=== PATIENT | male | born 1995 | race Caucasian/White ===

== ENCOUNTER 2019-12-16 13:13 | Emergency (ER) | payer OTHER, SELFPAY ==
[2019-12-16 13:27] VITALS: BP 139/88; PULSE 62; RESP 20; TEMP 36.8; O2SAT 98
--- NOTE | 2019-12-16 13:34 | ED.GENADULT ---
HPI - General Adult General Chief complaint: Upper Respiratory Infection Stated complaint: sore throat/cough Time Seen by Provider: 12/16/19 13:34 Source: patient and RN notes reviewed Mode of arrival: ambulatory Limitations: no limitations History of Present Illness HPI narrative: This is a 24 years old male presented to the office for evaluation of sore throat for 3-day.Associated with cough. Denies fever, vomiting, or diarrhea. Denies sick contact. He took DayQuil for his symptoms.He did not receive influenza vaccine for the season. Related Data Allergies Allergy/AdvReac Type Severity Reaction Status Date / Time No Known Allergies Allergy Unknown Verified 05/21/19 12:23 Review of Systems Review of Systems: Narrative: CONSTITUTIONAL: Denies fever ENT: Denies rhinorrhea, otalgia. CARDIOVASCULAR: Denies chest pain RESPIRATORY: Denies dyspnea, wheezing GASTROINTESTINAL: Denies abdominal pain, nausea, vomiting, diarrhea. GENITOURINARY: Denies urinary symptoms SKIN: Denies rash MUSCULOSKELETAL: Denies acute back pain, joint pain, or myalgia. NEUROLOGIC: Denies numbness, or focal weakness. [facility] Family History Family History (Updated 06/03/19 @ 11:24 by DOCTOR UNKNOWN) Father Hypertension Social History Social History Smoking status: Never smoker Alcohol intake: current Gender identity (if verbalized by the patient): Male Comments At time of signature, I agree with nursing past medical, surgical, social and family history. There is no relevant family history pertinent to the presenting complaint. Exam Narrative: Exam Narrative: GENERAL: This is a well-nourished, well-developed patient, in no apparent distress. EYES: Sclera clear/white. Vision is grossly intact. EARS: External ears normal, auditory canals clear and without drainage, TMs normal without perforation. Hearing grossly intact. NOSE: External nose normal with no obvious nasal discharge, nares without redness, no rhinorrhea. THROAT: Mucous membranes moist, posterior pharynx erythema with tonsils 2+ without exudative NECK: Neck supple, non-tender without lymphadenopathy, masses or thyromegaly. CARDIOVASCULAR: Regular rate and rhythm without murmurs, gallops, or rubs. RESPIRATORY: Clear to auscultation. Breath sounds equal bilaterally. No wheezes, rales, or rhonchi. GASTROINTESTINAL: Abdomen soft, non-tender, nondistended. Bowel sounds are active. No hepato-splenomegaly, or palpable masses. No guarding. SKIN: warm, intact with no suspicious lesions or rash, good texture and turgor. NEURO: awake, alert, and oriented to person, place and time. There were no obvious focal neurologic abnormalities. Steady gait Kaleb Coma Scale Eye Opening: Spontaneous 4 Laurens Coma Scale Motor: Obeys Commands 6 Laurens Coma Scale Verbal: Oriented 5 Course Vital Signs Vital signs: Vital Signs Temperature 98.2 F 12/16/19 13:27 Pulse Rate 62 12/16/19 13:27 Respiratory Rate 12/16/19 13:27 Blood Pressure 139/88 12/16/19 13:27 Pulse Oximetry 98 12/16/19 13:27 Temperature 98.2 F 12/16/19 13:27 Pulse Rate 62 12/16/19 13:27 Respiratory Rate 12/16/19 13:27 Blood Pressure 139/88 12/16/19 13:27 Pulse Oximetry 98 12/16/19 13:27 Medical Decision Making MDM Narrative Medical decision making narrative: Discharge instructions reviewed with patient, as well as provided in writing per nursing staff. The instructions also include specific and strict return/GO TO THE ER as well as f/u information. All questions have been answered, and the patient deny any further questions with discharge and discharge plan. Differential Diagnosis Differential Diagnosis: pneumonia, Allergic Rhinitis, Upper respiratory cough syndrome, Pharyngitis, Sinusitis, Bronchitis, otitis media, viral URI, Asthma/reactive airway disease, influenza Medical Records Medical records reviewed: Yes I reviewed the patient's medical records. Vital Signs Vital S
== END 2019-12-16 13:45 | disposition home or self-care (01) ==
PROVIDERS: Emergency Provider Nurse Practitioner; PCP Pediatrics
DX: J02.9 Acute pharyngitis, unspecified (principal); R03.0 Elevated blood-pressure reading, without diagnosis of hypertension
CPT/HCPCS: 87081; 87880; 99213; G0463

== ENCOUNTER 2021-06-15 10:14 | Emergency (ER) | payer OTHER, SELFPAY ==
--- NOTE | ~2021-06-15 | XR_ITS ---
EXAMINATION: XR chest 2V DATE: 06/15/2021 10:39 INDICATION: Cough TECHNIQUE: PA and lateral views of the chest are obtained. COMPARISON: 05/21/2018 FINDINGS: The lungs are free of acute opacities. There is no pleural effusion or pneumothorax. The ca rdiomediastinal silhouette is normal. The visualized bones and soft tissues are unremarkable. IMPRESSION: 1. No acute cardiopulmonary abnormality. Reviewed, dictated and finalized at location A.
[2021-06-15 10:26] VITALS: BP 117/78; PULSE 75; RESP 20; TEMP 36.8; O2SAT 98
--- NOTE | 2021-06-15 10:35 | ED.GENADULT ---
HPI - General Adult General Chief complaint: Upper Respiratory Infection Stated complaint: cough Source: patient Mode of arrival: ambulatory Limitations: no limitations History of Present Illness HPI narrative: 26 y/o male. PMHx Negative. Presents to [facility] today with acute complaints of sore throat and cough for the past 5 days. He reports non-productive cough. Non-smoker. No fever, chills. No chest pain, palpitations, dyspnea, edema. Client states to have throat irritation , worse with cough. No dysphagia, involuntary drooling, or stridor. He denies ill contacts. Has not been Covid 19 vaccinated. Denies additional acute illness upon exam. Related Data Allergies Allergy/AdvReac Type Severity Reaction Status Date / Time No Known Allergies Allergy Unknown Verified 06/15/21 10:24 Review of Systems Review of Systems: CONSTITUTIONAL: Denies fever, chills, sweats. EYES: Denies visual changes, redness, discharge. ENT: Positive rhinorrhea, congestion, sore throat. No otalgia. CARDIOVASCULAR: Denies chest pain, palpitations, edema. RESPIRATORY: Positive Cough. Denies dyspnea, wheezing. GASTROINTESTINAL: Denies abdominal pain, nausea, vomiting, diarrhea. GENITOURINARY: Denies dysuria, hematuria, abnormal discharge SKIN: Denies rash or itching. MUSCULOSKELETAL: Denies acute back pain, joint pain, or myalgia. NEUROLOGIC: Denies numbness, or focal weakness. PSYCHIATRIC: Denies anxiety or depression. All systems reviewed & are unremarkable except as noted in HPI and below PMFSH Family History Family History Father Hypertension Social History Social History Smoking status: Never smoker Alcohol intake: current Gender identity (if verbalized by the patient): Male Exam Narrative: GENERAL: This is a well-nourished, well-developed adult, in no apparent distress. HEAD: normocephalic, atraumatic. EYES: PERRL. Sclera clear/white. EARS: External ears normal, auditory canals clear and without drainage, TMs normal. NOSE: External nose normal. Positive Rhinorrhea, no obstruction, nares patent. THROAT: Mucous membranes moist. Posterior pharynx is erythematous. No exudates. NECK: Neck supple, non-tender without lymphadenopathy, masses or thyromegaly. CARDIOVASCULAR: Regular rate and rhythm without murmurs, gallops, or rubs. RESPIRATORY: Upper airway Rhonchi, cleared with cough. No wheezes, rales, or stridor. GASTROINTESTINAL: Abdomen soft, non-tender, nondistended. Bowel sounds are active. No guarding. SKIN: warm, intact with no suspicious lesions or rash, good texture and turgor. NEURO: No focal neurologic deficits. EXTREMITIES: Negative. Course Course Emergency Course: -26 y/o male. -PMHx negative. - Vital Signs Vital signs: Vital Signs Temperature 36.8 C 06/15/21 10:26 Pulse Rate 75 06/15/21 10:26 Respiratory Rate 20 06/15/21 10:26 Blood Pressure 117/78 06/15/21 10:26 Pulse Oximetry 98 06/15/21 10:26 Temperature 36.8 C 06/15/21 10:26 Pulse Rate 75 06/15/21 10:26 Respiratory Rate 20 06/15/21 10:26 Blood Pressure 117/78 06/15/21 10:26 Pulse Oximetry 98 06/15/21 10:26 Medical Decision Making MDM Narrative Medical decision making narrative: -Afebrile, non-tachycardic, and no hypoxemia. Non-toxic. -Plain view chest imaging reveals no acute cardiopulmonary processes. -Rapid Strep is negative. -Client has declined additional SARS Covid 19 testing in clinic today. -Start Amoxicillin and Medrol URI/Early pharyngitis unspecified. -Pro-Air HFA PRN w/dyspnea, cough, wheezing. -Rest, fluids, resumption of OTC remedies prn for symptomatic relief. -PCP F/U 1 WK. -ER with emergent health status changes. Pt agrees. Differential Diagnosis Differential Diagnosis: Differential Diagnosis: Consideration of the following conditions may be
== END 2021-06-15 11:05 | disposition home or self-care (01) ==
PROVIDERS: Emergency Provider Nurse Practitioner Adult Health; PCP Nurse Practitioner
DX: J06.9 Acute upper respiratory infection, unspecified (principal)
CPT/HCPCS: 71046; 87081; 87880; 99213; G0463

== ENCOUNTER 2022-10-22 11:01 | Emergency (ER) | payer OTHER, SELFPAY ==
--- NOTE | ~2022-10-22 | XR_ITS ---
EXAMINATION: XR chest 2V DATE: 10/22/2022 11:41 INDICATION: Cough. Right rib pain. TECHNIQUE: Frontal and lateral views of the chest were obtained on 3 radiographs. COMPARISON: Chest 2 views 06/15/2021, CT abdomen and pelvis 05/21/2019 FINDINGS: The chest demonstrates clear lungs without pneumonia, pleural effusion, or pneumothorax. Th e heart size is normal. IMPRESSION: 1. No acute cardiopulmonary disease. Reviewed, dictated and finalized at location A. ANICAL SYSTEMS DESIGNER
[2022-10-22 11:11] VITALS: BP 112/70; PULSE 76; RESP 20; TEMP 36.4; O2SAT 98
--- NOTE | 2022-10-22 20:27 | ED.GENADULT ---
HPI - General Adult General Chief complaint: Back Pain/Injury Stated complaint: Pain when breathing in History of Present Illness HPI narrative: 27 y/o male. PMHx None reported. Presents to [facility] today with acute complaints of RT lower rib/chest wall pain, intermittently radiating to mid-back. He denies falls or direct trauma. 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 No rashes, lesions. No cough, congestion, fever. Denies hemoptysis. No chest pain, palpitations, dyspnea. No gi upset, N/V/D. No loss of upper extremity sensation or control. He reports a 'sharp' pain type sensation, worse with bending or deep breath. No additional acute c/o upon PE. Related Data Allergies Allergy/AdvReac Type Severity Reaction Status Date / Time No Known Allergies Allergy Unknown Verified 10/22/22 11:21 Review of Systems Review of Systems: All systems reviewed & are unremarkable except as noted in HPI and below: MUSC: RT lower rib/chest wall pain. PMFSH Family History Family History Father Hypertension Social History Social History Smoking status: Never smoker Alcohol intake: current Gender identity (if verbalized by the patient): Male Exam Narrative: GENERAL: Well-appearing, well-nourished, and in no acute distress. HEAD: Normocephalic, atraumatic. EYES: PERRLA, conjunctivae clear. ENT: Mucous membranes moist. NECK: Supple. No lymphadenopathy. No meningeal signs. CHEST: LS are Clear to auscultation. Mild reproducible RT lower intercostal chest wall tenderness, respectively rib spaces 7-10. No crepitus, flailing, deformity. HEART: Regular rate and rhythm. SKIN: Warm, dry, intact. No chest wall lesions or rashes. NEURO:? Alert and oriented x3. MUSC: Reproducible RT thoracic spasm, no midline spinal tenderness or step-off. Full and unrestricted ROM BUE. Course Course Level of Care: Express Care Visit Vital Signs Vital signs: Vital Signs Temperature 36.4 C 10/22/22 11:11 Pulse Rate 76 10/22/22 11:11 Respiratory Rate 20 10/22/22 11:11 Blood Pressure 112/70 10/22/22 11:11 Pulse Oximetry 98 10/22/22 11:11 Oxygen Delivery Room Air 10/22/22 11:11 Temperature 36.4 C 10/22/22 11:11 Pulse Rate 76 10/22/22 11:11 Respiratory Rate 20 10/22/22 11:11 Blood Pressure 112/70 10/22/22 11:11 Pulse Oximetry 98 10/22/22 11:11 Oxygen Delivery Room Air 10/22/22 11:11 Medical Decision Making MDM Narrative Medical decision making narrative: -Reproducible tendernes on exam. -No chest wall trauma, deformity, lesions. -Xray: Clear lungs without pneumonia, pleural effusion, or pneumothorax. The heart size is normal. -Appears non-toxic. -No hypoxemia, no respiratory distress. -DC to home stable. -OP NSAID/Flexeril/Steroid taper as directed. -PCP F/U 1WK. -ER W/Emergent status changes. Pt agrees. Differential Diagnosis Differential Diagnosis: Differential Diagnosis: Consideration of the following conditions may be warranted for the presenting problem, they are not final diagnoses: : Costochondritis, chest wall pain, PE, PNA, GERD, Musculoskeletal pain, and/or other. Vital Signs Vital Signs: Vital Signs Temperature 36.4 C 10/22/22 11:11 Pulse Rate 76 10/22/22 11:11 Respiratory Rate 20 10/22/22 11:11 Blood Pressure 112/70 10/22/22 11:11 Pulse Oximetry 98 10/22/22 11:11 Oxygen Delivery Room Air 10/22/22 11:11 Temperature 36.4 C 10/22/22 11:11 Pulse Rate 76 10/22/22 11:11 Respiratory Rate 20 10/22/22 11:11 Blood Pressure 112/70 10/22/22 11:11 Pulse Oximetry 98 10/22/22 11:11 Oxygen Delivery Room Air 10/22/22 11:11 Discharge Plan Discharge Clinical Impression: Acute costochondritis Patient Disposition: Home, Self-Care Condition: Stable Instru
== END 2022-10-22 12:10 | disposition home or self-care (01) ==
PROVIDERS: Emergency Provider Nurse Practitioner Adult Health; PCP Pediatrics
DX: M94.0 Chondrocostal junction syndrome [Tietze] (principal)
CPT/HCPCS: 71046; 99213; G0463

== ENCOUNTER 2022-12-11 18:41 | Emergency (ER) | payer OTHER, SELFPAY ==
--- NOTE | ~2022-12-11 | XR_ITS ---
EXAM: XR knee LT 3V DATE: 12/11/2022 19:15 HISTORY: fall today on ice/pain lateral posterior . COMPARISON: None available. FINDINGS: Normal mineralization. No fracture or dislocation. No lytic or blastic lesion. Joint space s are maintained. No erosion or periosteal change. Soft tissues within normal limits. Small volume razia int fluid. IMPRESSION: No acute osseous finding in the left knee. Reviewed, dictated and finalized at location K. INE MANAGER
[2022-12-11 19:00] VITALS: BP 112/83; PULSE 98; RESP 18; TEMP 36.7; O2SAT 98
--- NOTE | 2022-12-11 19:10 | ED.LOWEXIN ---
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 Patient reports he kind of did split with his left leg and he has a lot of pain and some edema to his left knee. Pain to his left knee is laterally and posterior knee aspect with palpable swelling noted to knee. Patient is unable to tolerate full weight bearing to his left knee. MD complaint: knee injury Onset (ago): day(s) (today) Type of Injury: hyperextension Place: work and other (was outdoors) Related Data Home Medications Medication Instructions Recorded Confirmed No Home Medications 12/11/22 12/11/22 Allergies Allergy/AdvReac Type Severity Reaction Status Date / Time No Known Allergies Allergy Unknown Verified 12/11/22 18:43 Review of Systems Review of Systems: CONSTITUTIONAL: Denies fever, chills, or sweats. CARDIOVASCULAR: Denies chest pain, palpitations, or edema. RESPIRATORY: Denies cough or dyspnea. SKIN: Denies rash or itching. Denies laceration or abrasions MUSCULOSKELETAL: Reports slipped on ice in customers driveway today while working for [employer] states kind of did splits and now has pain lateral and posterior aspect of left knee NEUROLOGIC: Denies numbness, or weakness. All systems reviewed & are unremarkable except as noted in HPI and below [facility] Past Medical History Medical History (Updated 12/12/22 @ 11:38 by Anne-Marie Silva NP) Hurtado's palsy Surgical History Surgical History (Updated 12/12/22 @ 11:37 by Anne-Marie Silva NP) History of appendectomy Family History Family History Father Hypertension Social History Social History Smoking status: Never smoker Alcohol intake: current Gender identity (if verbalized by the patient): Male Comments At time of signature, agree with nursing past medical, surgical, social and family history. There is no relevant family history pertinent to the presenting complaint Exam Narrative: GENERAL: Well-appearing, well-nourished, and in no acute distress. HEAD: Normocephalic, atraumatic. EYES: PERRLA and EOMI. ENT: Nares clear, no rhinorrhea or epistaxis. Mucous membranes moist. TMs normal with good light reflex throat pink with no lesions or exudate NECK: Supple. No lymphadenopathy CHEST: Clear to auscultation. No respiratory distress. SaO2 98% on room air HEART: Regular rate and rhythm. No murmur heard. Normal peripheral pulses. ABDOMEN: Soft, nontender, nondistended, normal active bowel sounds. EXTREMITIES: Normal range of motion. No edema. Exception noted to left knee which has limited ROM due to pain and some swelling, pulses strong to his left foot,denies any tingling or numbness to his left left or foot. SKIN: Warm, dry, no rash. NEURO: No focal deficits. Alert and oriented x3. Course Course Emergency Course: Patient is aware of diagnosis, understands and agrees to treatment plan. Anticipatory guidance given. Patient agrees to follow-up as directed and is aware of reasons to seek care at the emergency department. Portions of this record may have been created with voice recognition software Level of Care: Express Care Visit Vital Signs Vital signs: Vital Signs Temperature 36.7 C 12/11/22 19:00 Pulse Rate 98 12/11/22 19:00 Respiratory Rate 18 12/11/22 19:00 Blood Pressure 112/83 12/11/22 19:00 Pulse Oximetry 98 12/11/22 19:00 Oxygen Delivery Room Air 12/11/22 19:00 Temperature 36.7 C 12/11/22 19:00 Pulse Rate 98 0
== END 2022-12-11 19:49 | disposition home or self-care (01) ==
PROVIDERS: Emergency Provider Registered Nurse; PCP Pediatrics
DX: M25.562 Pain in left knee (principal)
CPT/HCPCS: 73562; 73564; 99213; G0463

== ENCOUNTER 2023-01-22 12:30 | Outpatient (RCR) | payer OTHER, SELFPAY ==
--- NOTE | 2022-12-25 11:52 | PTOPEVAL1 ---
Assessment and note entered by Chaka Velarde, PT Evaluation Information Diagnosis L knee pain Onset 12/11/22 Subjective Information Patient reports he fell on ice on December 11 and has been having pain ever since. He was unable to put any weight through his leg at first, but no ambulating with one crutch and putting some weight through the L LE. Patient also wearing a brace. The patient states he feels like his knee has not gotten any better since he fell, he is just getting used to the pain more. Reported Pain Level Pain Score 6: Self Report Additional Pain Score Comments 8 at its worst. Assessment PT Clinical Summary Jorge is a 27 year old male coming into the clinic because of L knee pain. He has decreased range of motion and strength in the quads. The patient was negative for all special tests on the knee, but there is tenderness along both the lateral and medial joint lines worse on the lateral side and around the tibial tuberosity. Physical therapy will work on increasing range of motion and strengthening of the L knee along with progressing away from his crutch and knee brace when able. Modalities as needed for pain control. Plan of Care Interventions Electrical Stimulation,Gait Training,Hot Pack/Cold Pack,Manual Therapy,Neuro Re-education,Patient/ Caregiver Education,Therapeutic Activities, Therapeutic Exercise,Ultrasound Other Interventions taping PT Services Indicated Yes Treatment Frequency and 1-2x/wk for 4 weeks Duration These treatments will address the objective and functional deficits as defined above. The patient will be advanced safely and appropriately in order for the patient to progress towards his/her prior level of function. Additional exercises will be introduced and as well as a comprehensive home exercise program upon discharge, if needed, ?to ensure carryover of functional gains achieved in the clinic. This treatment plan has been reviewed and agreement upon by the patient.
--- NOTE | 2022-12-31 08:10 | PCPTNOTE ---
Patient did not show up for scheduled appointment this date; called patient about scheduled appointment with reminder for next appointment on 01/03 @13:15.
--- NOTE | 2023-01-10 11:35 | PCPTNOTE ---
Patient did not show up for scheduled appointment this date. Called and had to leave a message.
--- NOTE | 2023-01-22 13:15 | PTOPDC ---
Assessment and note entered by Chaka Velarde, PT Evaluation Information Assessment Status Discharge Diagnosis L knee sprain Onset 12/11/22 Subjective Information Patient reports that he has no improvement in pain always being in 7-8/10 pain. Did have a followup appointment with Dr. De Jesus on Jan 02 in which the MD ordered an MRI, but reports he has been unable to get it scheduled yet. Reported Pain Level Pain Score 7: Self Report Assessment PT Clinical Summary Jorge is a 27 year old male coming into the clinic with a diagnosis of L knee sprain. During the 7 sessions he was here he had improvement in strength and range of motion up from 95 degrees to 125 degrees. No change in pain and unable to progress off of the crutch. Patient reports he is trying to get his MRI done. I recommend discharging from skilled physical therapy until after the MRI as he has functional strength and range of motion now, but do not want to increase pain and feel with the current pain will prevent him from progressing off the crutch. Plan of Care PT Services Indicated No Treatment Frequency and discharged from skilled physical therapy. Duration
== END 2023-03-11 10:42 | disposition home or self-care (01) ==
LOC: ANHPT 12:30
PROVIDERS: PCP Pediatrics; Visit Provider Orthopaedic Surgery
DX: S83.8X2D Sprain of other specified parts of left knee, subsequent encounter (principal)
CPT/HCPCS: 97014; 97110; 97140; 97161; 97530; 99199; G0283

== ENCOUNTER 2023-02-06 12:54 | Outpatient (CLI) | payer OTHER, SELFPAY ==
--- NOTE | ~2023-02-06 | MR_ITS ---
MRI of the left knee Clinical history: Pain Technique: Coronal proton density and proton density-weighted images, sagittal proton-density and T2 fat-sat images, and axial proton-density fat-saturated images were acquired. Findings: Anterior and posterior cruciate ligaments are intact. Medial collateral ligament and the la teral collateral ligament complex are intact. Popliteus tendon is intact. Medial and lateral menisci are intact, without evidence of tear. Articular cartilage is well preserved throughout the knee. Bone marrow signals are unremarkable. Extensor mechanism is intact. No joint effusion or Bertrand's cyst. Impression: Unremarkable exam. Reviewed, dictated and finalized at location . Impression: Unremarkable exam.
== END 2023-02-06 12:55 | disposition home or self-care (01) ==
LOC: ANHIMG 12:56
PROVIDERS: PCP Nurse Practitioner; Visit Provider Orthopaedic Surgery
DX: S83.8X2A Sprain of other specified parts of left knee, initial encounter (principal); X58.XXXA Exposure to other specified factors, initial encounter
CPT/HCPCS: 73721

== ENCOUNTER 2023-04-19 08:00 | Outpatient (RCR) | payer OTHER, SELFPAY ==
--- NOTE | 2023-03-22 15:52 | PTOPEVAL1 ---
Assessment and note entered by Jeanine May, PT Evaluation Information Assessment Status Evaluation Diagnosis L knee sprain Onset Dec 11, 2022 Subjective Information Dec 11, fell on ice, legs did the splits; knee pain; had PT then returned to dr, had MRI- negative; had injection and that helped the pain for few weeks; no longer using the crutches, like was before; returned to work--cnc mechanic, at full work duty; was doing the exercises from therapy before, but since going back to work, had not been doing; problems doing ladders & kneeling; walking is OK; Reported Pain Level Pain Score Self Report Additional Pain Score Comments reports pain range in last week: 5-8/10; L knee- distal & lateral-distal patella and under the knee cap- throb, stab like needle in knee; constantly hurting; decrease pain with rest, sit; not taking any pain meds; no swelling of knee; Assessment PT Clinical Summary Jorge has the diagnosis of L knee sprain, s/p fall in November. The MRI was negative. He has received PT in the past here. Reports his knee is better, has returned to work and no longer using crutches, but pain continues and he cannot kneel on his knee and problems going up/down ladders. With the evaluation, he has good ROM of L hip and knee, but has weakness; reports pain of 5-8/10 in distal quad tendon and inferior-lateral patellar areas. Skilled PT services are indicated for modalities to decrease pain, therapeutic exercises to increase strength of L hip and knee and education for home exercises. Plan of Care Interventions Electrical Stimulation,Hot Pack/Cold Pack,Manual Therapy,Neuro Re-education,Patient/Caregiver Education,Therapeutic Activities,Therapeutic Exercise,Ultrasound,Other Other Interventions edwardoing, IASTM PT Services Indicated Yes Treatment Frequency and 2x/wk for 4 weeks Duration These treatments will address the objective and functional deficits as defined above. The patient will be advanced safely and appropriately in order for the patient to progress towards his/her prior level of function. Additional exercises will be introduced and as well as a comprehensive home exercise program upon discharge, if needed, ?to ensure carryover of functional gains achieved in the clinic. This treatment plan has been reviewed and agreement upon by the patient.
--- NOTE | 2023-04-03 07:57 | PCPTNOTE ---
Patient did not show up for scheduled appointment 7:30 AM this date.
--- NOTE | 2023-04-10 16:00 | PCPTNOTE ---
pt did not show for today's treatment; called and left voice message for reminder of next appt;
--- NOTE | 2023-04-16 08:30 | PCPTNOTE ---
Patient did not show up for scheduled appointment this date. Called and had to leave a message.
--- NOTE | 2023-04-19 08:40 | PTOPDC ---
Assessment and note entered by Jeanine May, PT Evaluation Information Assessment Status Discharge Diagnosis L knee sprain Onset Dec 11, 2022 Subjective Information Jorge reports: feels like his knee is about the same, still hurts on the outside of his knee; have been working, have done a few double shifts-- going up/down the ladder gives him troubles and cannot kneel on his knee; walking is OK, no problems; has been trying to keep up with the exercises; Reported Pain Level Pain Score Self Report Additional Pain Score Comments pain range in past week 4-7/10; pain L distal- lateral patella, sharp and hurts; feels like it has always been puffy since hurt it--pointed lateral knee; increase pain: ladder & kneeling on concrete at work decrease pain: not doing anything, just relax reviewed use of ice, elevation, over the counter meds Assessment PT Clinical Summary Jorge has received 4 PT sessions. He did not show for 3 scheduled appointments. Compared to the initial evaluation: pain rating is about the same, was 5-8/10 and now 4-7/10; his activity level has increased--has worked several double shifts; reports no problems with walking; only reported issues with going up/down ladder and kneeling on his knees at work; Strength has increased slightly with single leg standing tolerance of 16 seconds and standing bilateral PF; with mat exercises, performs 10-15 reps then stops due to leg weak or leg shaking With kneeling testing- was able to kneel with both knees on foam pad for 1 minute & 4 seconds, then stood up due to knee gave out. He has been educated on home exercises, pain management and safety with mobility/positioning. The goals were partially met. Discharge PT services; he is to continue with HEP to increase strength. Plan of Care PT Services Indicated No
== END 2023-04-19 10:05 | disposition home or self-care (01) ==
LOC: ANHPT 08:00
PROVIDERS: PCP Nurse Practitioner; Visit Provider Orthopaedic Surgery
DX: M25.562 Pain in left knee (principal); S83.8X2D Sprain of other specified parts of left knee, subsequent encounter
CPT/HCPCS: 97110; 97112; 97140; 97161; 97530; 99199